=== PATIENT | male | born 1970 | race Caucasian/White ===

== ENCOUNTER 2018-12-24 21:37 | Emergency (ER) | payer MEDICAID, MEDICARE ==
[~2018-12-24] VITALS: Ht 172.7 cm; Wt 87.5 kg
[2018-12-24 21:47] VITALS: BP 173/96
--- NOTE | 2018-12-24 21:54 | NUR ---
PT AMBULATED TO LOBBY
--- NOTE | 2018-12-24 22:15 | NUR ---
PT AMBULATED TO BED 11
--- NOTE | 2018-12-24 22:39 | NUR ---
Dr. Menendez examining patient.
--- NOTE | 2018-12-24 22:40 | NUR ---
EKG PERFORMED AT BEDSIDE WITH FAMILY MEMBER PRESENT
--- NOTE | 2018-12-24 23:03 | NUR ---
48 Y/O MALE PRESENTS TO ED, C/O DIZZNESS X6 DAYS. PT STATES DIZZINESS WORSENED TODAY. PT ABLE TO AMBULATE WITH SLOW STEADY GAIT. PT C/O OF HEADACHE 5/10. PT STATES BEING NAUSEOUS BUT NO VOMITING. PT HAS HX OF HTN, COMPLIANT WITH BP MEDS. PT VSS. ERMD SEEN. WILL CONTINUE TO MONITOR.
[2018-12-24] MEDS ORDERED: MECLIZINE 25 MG TAB PO ONE (23:10)
[2018-12-24 23:46] LABS: BASOPHILS % (AUTO) 0.4 % (0.0-2.0); EOSINOPHILS # (AUTO) 0.4 K/uL (0-0.4); EOSINOPHILS % (AUTO) 4.1 % (0.0-4.0); HEMATOCRIT 43.5 % (36-52); HEMOGLOBIN 14.6 g/dL (12.0-18.0); LYMPHOCYTES # (AUTO) 3.2 K/uL (2.0-11.5); LYMPHOCYTES % (AUTO) 36.4 % (20.5-51.1); MEAN CORPUSCULAR HEMOGLOBIN 29 pg (27-31); MEAN CORPUSCULAR HGB CONC 34 g/dL (33-37); MEAN CORPUSCULAR VOLUME 86.6 fL (80-94); MONOCYTES # (AUTO) 0.5 K/uL (0.8-1.0); MONOCYTES % (AUTO) 5.3 % (1.7-9.3); NEUTROPHILS # (AUTO) 4.7 K/uL (1.8-7.7); NEUTROPHILS % (AUTO) 53.8 % (42.2-75.2); PLATELET COUNT (AUTO) 243 K/uL (140-450); RED BLOOD CELL COUNT(AUTO) 5.03 MIL/uL (4.20-6.10); RED CELL DISTRIBUTION WIDTH 13.4 % (11.6-13.7); WHITE BLOOD COUNT (AUTO) 8.7 K/uL (4.8-10.8)
--- NOTE | 2018-12-24 23:47 | NUR ---
PT TAKEN TO CT
[2018-12-25 00:04] LABS: ALBUMIN 3.7 g/dL (3.4-5.0); ANION GAP 9.8 (8-16); CARBON DIOXIDE 32.7 mmol/L (21-32); POTASSIUM 3.5 mmol/L (3.5-5.1); TOTAL BILIRUBIN 0.4 mg/dL (0.0-1.0)
[2018-12-25 00:33] VITALS: BP 165/88
--- NOTE | 2018-12-25 00:33 | NUR ---
PT DISCHARGED WITH PAPERWORK. RX MECLIZINE. EDUCATED PT REGARDING MEDICATION AND S/E. EDUCATED PT REGARDING D/C DIAGNOSIS AND INSTRUCTIONS. PT VERBALIZED UNDERSTANDING OF TEACHING. TOLD PT TO FOLLOW UP WITH PCP AND WHEN TO RETURN TO ED. PT VSS. PT DENIES ANY DIZZINESS OR HEADACHE. ALL QUESTIONS ANSWERED.
== END 2018-12-25 00:33 | disposition home or self-care (01) ==
LOC: MED 21:37
DX: R42 Dizziness and giddiness (principal); I10 Essential (primary) hypertension; Z88.0 Allergy status to penicillin
CPT/HCPCS: 36415; 70450; 74176; 80053; 85025; 93005; 99284; J8597

== ENCOUNTER 2019-04-30 11:29 | Inpatient (IN) | payer MEDICAID ==
[~2019-04-30] VITALS: Ht 165.1 cm; Wt 93.4 kg
[2019-04-30 11:46] VITALS: BP 137/89
[2019-04-30] MEDS ORDERED: ATEN25TA7 PO (11:56)
[2019-04-30] MEDS ORDERED: SPIR50TA PO (11:56)
[2019-04-30] MEDS ORDERED: CLON0.2T43 PO (11:56)
[2019-04-30] MEDS ORDERED: ASPI-1822 PO (11:56)
[2019-04-30] MEDS ORDERED: POTA10TE30 PO (11:56)
--- NOTE | 2019-04-30 12:05 | NUR ---
EKG DONE ER OK FOR ER LOBBY
[2019-04-30 14:07] LABS: BASOPHILS # (AUTO) 0.1 K/uL (0.00-0.22); EOSINOPHILS # (AUTO) 0.2 K/uL (0-0.4); EOSINOPHILS % (AUTO) 2.2 % (0.0-4.0); HEMATOCRIT 43.6 % (36-52); LYMPHOCYTES # (AUTO) 3.2 K/uL (2.0-11.5); LYMPHOCYTES % (AUTO) 35.4 % (20.5-51.1); MEAN CORPUSCULAR HEMOGLOBIN 28 pg (27-31); MEAN CORPUSCULAR HGB CONC 34 g/dL (33-37); MEAN CORPUSCULAR VOLUME 82.6 fL (80-94); MONOCYTES # (AUTO) 0.4 K/uL (0.8-1.0); NEUTROPHILS # (AUTO) 5.1 K/uL (1.8-7.7); NEUTROPHILS % (AUTO) 56.4 % (42.2-75.2); PLATELET COUNT (AUTO) 234 K/uL (140-450); RED BLOOD CELL COUNT(AUTO) 5.29 MIL/uL (4.20-6.10); RED CELL DISTRIBUTION WIDTH 13.5 % (11.6-13.7)
--- NOTE | 2019-04-30 14:09 | NUR ---
XR AT BEDSIDE.
--- NOTE | 2019-04-30 14:14 | NUR ---
48 Y/M PRESENTS TO ED FOR PALPITATIONS X 10 DAY. PT DENIES PAIN. DISCOMFORT RADIATES FROM LEFT UPPER CHEST TO R UPPER CHEST. DENEIS SOB OR HUMPHRIES. PT HAS NEVER EXPERIENCED THIS PAIN BEFORE. PALPITATIONS ARE ON AND OFF AND LAST ABOUT 30 MINUTES, DENIES PRECIPITATING FACTORS. HX- HTN MD- CLONIDINE, K, SPIRONOLACTONE, ASA.
--- NOTE | 2019-04-30 14:14 | NUR ---
PT PLACED ON 3 LEAD ECG AND PULSE OX.
[2019-04-30 14:23] LABS: ALBUMIN 3.6 g/dL (3.4-5.0); ANION GAP 9.9 (8-16); CARBON DIOXIDE 32.5 mmol/L (21-32); MAGNESIUM 2.1 mg/dL (1.8-2.4); POTASSIUM 3.4 mmol/L (3.5-5.1); TOTAL BILIRUBIN 0.7 mg/dL (0.0-1.0)
[2019-04-30 14:32] LABS: PROTHROMBIN TIME 9.3 secs (10.8-13.4)
--- NOTE | 2019-04-30 14:48 | NUR ---
TROPONIN 0.135
[2019-04-30] MEDS ORDERED: ASPIRIN 81 MG TAB.CHEW PO ONE (15:05)
[2019-04-30] MEDS ORDERED: ATOR10TA PO (15:19)
[2019-04-30] MEDS ORDERED: HYDR-3293 PO (15:19)
[2019-04-30] MEDS ORDERED: ACET-2619 PO (15:19)
[2019-04-30] MEDS: NACL 0.9% 1,000 ML IV SCH (16:19)
[2019-04-30] MEDS ORDERED: LORazepam 2 MG/ML VIAL IM/IVP PRN (16:20)
[2019-04-30] MEDS ORDERED: ACETAMINOPHEN 325 MG TAB PO PRN (16:20)
[2019-04-30] MEDS ORDERED: MORPHINE SULFATE 2 MG/ML SYR IVP PRN (16:20)
[2019-04-30] MEDS ORDERED: ONDANSETRON 4 MG/2 ML VIAL IM/IVP PRN (16:20)
[2019-04-30] MEDS ORDERED: DOCUSATE SODIUM 100 MG GELCAP PO PRN (16:20)
[2019-04-30] MEDS ORDERED: HYDROcodone/APAP 5/325 MG 1 TAB TAB PO PRN (16:20)
--- NOTE | 2019-04-30 16:45 | NUR ---
Patient will be admitted to care of [facility]. Admited to TELE. Will go to room 106b. Belongings list completed. Report to
[2019-04-30] MEDS ORDERED: POTASSIUM CHLORIDE 10 MEQ TABER PO SCH (17:00)
[2019-04-30 17:03] LABS: PROTHROMBIN TIME 9.3 secs (10.8-13.4)
[2019-04-30 17:10] VITALS: BP 141/80
--- NOTE | 2019-04-30 17:10 | NUR ---
PATIENT ARRIVED FROM ER VIA WHEELCHAIR. ABLE TO AMBULATE TO [facility] BED WITH STEADY GAIT. NO DISTRESS NOTED. DENIES ANY PAIN. SKIN INTACT. IV SITE INTACT, PATENT, AND ON SALINE LOCK. ORIENTED PATIENT TO ROOM AND CALL LIGHT. SAFETY MEASURES IN PLACE, CALL LIGHT WITHIN REACH. WILL CONTINUE TO MONITOR.
[2019-04-30 17:27] LABS: MAGNESIUM 2.1 mg/dL (1.8-2.4); PHOSPHORUS 2.6 mg/dL (2.5-4.9); THYROID STIMULATING HORMONE 1.94 uIU/mL (0.34-3.74)
--- NOTE | 2019-04-30 19:05 | NUR ---
RECEIVED PATIENT IN STABLE CONDITION FROM AM SHIFT NURSE FOR CONTINUITY OF CARE. ALERT AND ABLE TO MAKE NEEDS KNOWN. RESPIRATIONS EVEN, UNLABORED. SKIN WARM, DRY TO TOUCH. NO C/O PAIN. NO S/SX ACUTE DISTRESS. IV SITE TO LEFT HAND 20G PATENT/INTACT, INFUSING FLUIDS WELL. CALL LIGHT WITHIN REACH. WILL CONTINUE TO MONITOR.
--- NOTE | 2019-04-30 19:08 | NUR ---
GAVE REPORT TO LIVESTOCK AGENT NURSE FOR CONTINUITY OF CARE. PATIENT IN STABLE CONDITION.
[2019-04-30] MEDS ORDERED: HEPARIN PER PHARMACY MC PRN (19:55)
[2019-04-30 20:00] VITALS: BP 138/81
--- NOTE | 2019-04-30 21:00 | NUR ---
PATIENT AWAKE AND IN STABLE CONDITION. NO C/O PAIN. NO S/SX ACUTE DISTRESS. CALL LIGHT WITHIN REACH. WILL CONTINUE TO MONITOR.
[2019-04-30 22:49] LABS: BARBITURATE, URINE NEG. ng/ml (NEG <=200); BENZODIAZEPINE, URINE NEG. ng/mL (NEG <=200); CANNABINOID, URINE NEG. ng/mL (NEG <=50); COCAINE, URINE NEG. ng/mL (NEG <=300); OPIATE, URINE NEG. ng/mL (NEG <=2000); PHENCYCLIDINE SCREEN,URINE NEG. ng/mL (NEG <=25)
--- NOTE | 2019-04-30 23:00 | NUR ---
PATIENT ASLEEP. NO C/O PAIN. NO S/SX ACUTE DISTRESS. CALL LIGHT WITHIN REACH. WILL CONTINUE TO MONITOR.
[2019-04-30 23:12] LABS: APPEARANCE,URINE CLEAR (CLEAR); BILIRUBIN,URINE NEGATIVE (NEGATIVE); BLOOD, URINE NEGATIVE (NEGATIVE); COLOR,URINE YELLOW (YELLOW); LEUKOCYTE ESTERASE ,URINE NEGATIVE (NEGATIVE); NITRITE, URINE NEGATIVE (NEGATIVE); PH,URINE 6.5 (5.0-9.0); UGLUCOSE NEGATIVE (NEGATIVE)
[2019-04-30] MEDS: hePARIN / DEXT 5% PREMIX 250 ML IV SCH (23:30)
[2019-05-01] VITALS: BP 136/77
--- NOTE | 2019-05-01 00:23 | NUR ---
NEW IV SITE TO LEFT HAND 22G, INFUSING FLUIDS WELL. NO C/O PAIN. NO S/SX ACUTE DISTRESS. CALL LIGHT WITHIN REACH. WILL CONTINUE TO MONITOR.
--- NOTE | 2019-05-01 01:07 | NUR ---
CRITICAL TROPONIN 0.[address] CHAVEZ WITH NO NEW ORDERS; CONTINUE WITH HEPARIN DRIP. PATIENT IS ASLEEP IN BED. NO C/O PAIN. NO S/SX ACUTE DISTRESS. CALL LIGHT WITHIN REACH. WILL CONTINUE TO MONITOR.
--- NOTE | 2019-05-01 03:15 | NUR ---
PATIENT ASLEEP IN BED AND IN STABLE CONDITION. NO C/O PAIN. NO S/SX ACUTE DISTRESS. CALL LIGHT WITHIN REACH. WILL CONTINUE TO MONITOR.
[2019-05-01 04:00] VITALS: BP 154/88
--- NOTE | 2019-05-01 05:26 | NUR ---
PATIENT ASLEEP IN BED AND IN STABLE CONDITION. NO C/O PAIN. NO S/SX ACUTE DISTRESS. CALL LIGHT WITHIN REACH. WILL CONTINUE TO MONITOR.
[2019-05-01 07:23] LABS: BASOPHILS % (AUTO) 0.4 % (0.0-2.0); EOSINOPHILS # (AUTO) 0.3 K/uL (0-0.4); EOSINOPHILS % (AUTO) 3.6 % (0.0-4.0); HEMATOCRIT 46.2 % (36-52); HEMOGLOBIN 15.4 g/dL (12.0-18.0); LYMPHOCYTES # (AUTO) 2.8 K/uL (2.0-11.5); LYMPHOCYTES % (AUTO) 35.8 % (20.5-51.1); MEAN CORPUSCULAR HEMOGLOBIN 29 pg (27-31); MEAN CORPUSCULAR HGB CONC 33 g/dL (33-37); MONOCYTES # (AUTO) 0.4 K/uL (0.8-1.0); MONOCYTES % (AUTO) 5.1 % (1.7-9.3); NEUTROPHILS # (AUTO) 4.3 K/uL (1.8-7.7); NEUTROPHILS % (AUTO) 55.1 % (42.2-75.2); PLATELET COUNT (AUTO) 211 K/uL (140-450); RED BLOOD CELL COUNT(AUTO) 5.31 MIL/uL (4.20-6.10); RED CELL DISTRIBUTION WIDTH 13.5 % (11.6-13.7); WHITE BLOOD COUNT (AUTO) 7.8 K/uL (4.8-10.8)
[2019-05-01 07:24] LABS: ANION GAP 9.9 (8-16); CARBON DIOXIDE 31.7 mmol/L (21-32); CREATININE 0.9 mg/dL (0.6-1.3); POTASSIUM 3.6 mmol/L (3.5-5.1)
--- NOTE | 2019-05-01 07:25 | NUR ---
RECEIVED REPORT FROM CARE SERVICES MANAGER RN FOR CONTINUITY OF CARE. PT IS AAOX4, AUSTRIAN SPEAKING. PT ABLE TO MAKE NEEDS KNOWN. PT ABLE TO AMBULATE WITHOUT ASSISTANCE. LUNG SOUNDS CLEAR. VOIDING ADEQUATE. PT IV IN THE LEFT FA 20G INFUSING HEPARIN AT 8.89ML/HR. IV IN THE LEFT HAND 22G INFUSING NS @60ML/HR. BOTH IVS PATENT AND INTACT. PT DENIES PAIN. DISCUSSED POC WITH PT AND PT VERBALIZED UNDERSTANDING. BOARD UPDATED. WILL ROUND FREQUENTLY ON PT. BED IN LOW POSITION, CALL LIGHT WITHIN REACH.
[2019-05-01 07:33] LABS: CHOL/HDL RATIO 4.8 (1-4.5)
[2019-05-01] MEDS ORDERED: cloNIDine 0.1 MG TAB PO PRN (08:25)
--- NOTE | 2019-05-01 08:39 | NUR ---
PATIENT HAS BEEN SCREENED AND CATEGORIZED MODERATE NUTRITION RISK. PATIENT WILL BE SEEN WITHIN 3-5 DAYS OF ADMISSION. 05/03/19 05/05/[address]
--- NOTE | 2019-05-01 08:42 | NUR ---
DISCHARGE PLANNING: THIS IS A 48 Y/O MALE PATIENT FROM HOME, WHO CAME IN DUE TO BRADYCARDIA. PAST MEDICAL HISTORY INCLUDE HTN. INITIAL DIAGNOSIS OF BRADYCARDIA. CURRENT LABS INCLUDE WBC 7.8, H/H 15.4/46.2, NA/K 143/3.6, BUN/CREA 13/0.9. TROP TRENDING DOWN, 0.143 ON ADMISSION AND TODAY 0.138. MRSA NARES PENDING. ON HEPARIN DRIP. CXR NEGATIVE. CARDIO CONSULT IN PLACE. DC PLAN BACK TO HOME ONCE STABLE.
[2019-05-01] MEDS ORDERED: LOSARTAN 50 MG TAB PO SCH (09:00)
[2019-05-01] MEDS ORDERED: cloNIDine 0.1 MG TAB PO SCH (09:00)
[2019-05-01] MEDS ORDERED: SPIRONOLACTONE 25 MG TAB PO SCH (09:00)
--- NOTE | 2019-05-01 09:12 | NUR ---
ADMINISTERED MORNING MEDS TO PT. PT TOLERATED WELL. ALL NEEDS MET. WILL CONTINUE TO ROUND FREQUENTLY ON PT. BED IN LOW POSITION, CALL LIGHT WITHIN REACH.
[2019-05-01] MEDS: ASPIRIN 81 MG TAB.CHEW PO SCH (09:14)
[2019-05-01] MEDS: hePARIN / DEXT 5% PREMIX 250 ML IV SCH (09:19)
[2019-05-01] MEDS: NACL 0.9% 1,000 ML IV SCH (09:56)
[2019-05-01 11:07] VITALS: BP 173/92
--- NOTE | 2019-05-01 11:58 | NUR ---
PT RESTING IN BED. ALL NEEDS MET. WILL CONTINUE TO ROUND FREQUENTLY ON PT. BED IN LOW POSITION, CALL LIGHT WITHIN REACH.
[2019-05-01 12:00] VITALS: BP 127/75
--- NOTE | 2019-05-01 13:46 | NUR ---
PT RESTING IN BED. ALL NEEDS MET.
--- NOTE | 2019-05-01 15:43 | NUR ---
PT AMBULATING IN [facility]. ALL NEEDS MET.
[2019-05-01 16:00] VITALS: BP 145/76
--- NOTE | 2019-05-01 17:55 | NUR ---
PT SITTING IN BEDSIDE CHAIR HAVING DINNER. ALL NEEDS MET.
--- NOTE | 2019-05-01 19:21 | NUR ---
RECEIVED PATIENT FROM AM SHIFT NURSE IN STABLE CONDITION FOR CONTINUITY OF CARE. MAORI SPEAKING, ABLE TO MAKE NEEDS KNOWN. RESPIRATIONS EVEN, UNLABORED. NO C/O PAIN. NO S/SX ACUTE DISTRESS. IV SITE TO LEFT AC 20G PATENT/INTACT, FLUSHES WELL. IV SITE TO LEFT HAND 22G PATENT/INTACT, INFUSING FLUIDS WELL. CALL LIGHT WITHIN REACH. WILL CONTINUE TO MONITOR.
--- NOTE | 2019-05-01 19:36 | NUR ---
ENDORSED PT TO ENTRY LEVEL AUTOMOTIVE TECHNICIAN FOR CONTINUITY OF CARE. PT IN STABLE CONDITION AT THIS TIME.
[2019-05-01 20:00] VITALS: BP 168/97
[2019-05-01] MEDS ORDERED: ATORVASTATIN 20 MG TAB PO SCH (21:00)
--- NOTE | 2019-05-01 21:10 | NUR ---
MADE ROUNDS. PATIENT IS AWAKE AND IN STABLE CONDITION. NO C/O PAIN. NO S/SX ACUTE DISTRESS. CALL LIGHT WITHIN REACH. WILL CONTINUE TO MONITOR.
--- NOTE | 2019-05-01 23:41 | NUR ---
PATIENT IS AWAKE AND ON HIS PHONE. CONTINUES IN STABLE CONDITION. NO C/O PAIN. NO S/SX ACUTE DISTRESS. CALL LIGHT WITHIN REACH. WILL CONTINUE TO MONITOR.
[2019-05-02] VITALS: BP 140/79
--- NOTE | 2019-05-02 01:09 | NUR ---
PATIENT IS ASLEEP AND IN STABLE CONDITION. NO C/O PAIN. NO S/SX ACUTE DISTRESS. CALL LIGHT WITHIN REACH. WILL CONTINUE TO MONITOR.
[2019-05-02] MEDS: NACL 0.9% 1,000 ML IV SCH ×2 (01:39→02:44)
--- NOTE | 2019-05-02 03:01 | NUR ---
MADE ROUNDS. PATIENT IS AWAKE AND CONTINUES IN STABLE CONDITION. NO C/O PAIN. NO S/SX ACUTE DISTRESS. CALL LIGHT WITHIN REACH. WILL CONTINUE TO MONITOR.
[2019-05-02 04:00] VITALS: BP 151/91
--- NOTE | 2019-05-02 05:26 | NUR ---
PATIENT AWAKE AND IN STABLE CONDITION. NO C/O PAIN. NO S/SX ACUTE DISTRESS. CALL LIGHT WITHIN REACH. WILL CONTINUE TO MONITOR.
--- NOTE | 2019-05-02 07:23 | NUR ---
ENDORSED PATIENT TO AM SHIFT IN STABLE CONDITION FOR CONTINUITY OF CARE.
--- NOTE | 2019-05-02 07:30 | NUR ---
RECEIVED PT FROM NIGHT NURSE. PT IN STABLE CONDITION, AWAKE IN BED, AAOX4, RESPIRATION EVEN AND UNLABORED ON ROOM AIR. NO DISTRESS NOTED, DENIES PAIN AT THIS TIME. SKIN INTACT, AMBULATORY. IV IN PLACE PATENT AND ASYMPTOMATIC IN L AC 20G SALINE LOCKED AND L HAND 22G INFUSING PER ORDER. CONTINENT. SAFETY MEASURES IN PLACE. CALL LIGHT WITHIN REACH, WILL CONTINUE TO MONITOR.
[2019-05-02 07:46] LABS: BASOPHILS % (AUTO) 0.3 % (0.0-2.0); EOSINOPHILS # (AUTO) 0.3 K/uL (0-0.4); HEMATOCRIT 42.3 % (36-52); LYMPHOCYTES # (AUTO) 2.7 K/uL (2.0-11.5); LYMPHOCYTES % (AUTO) 32.8 % (20.5-51.1); MEAN CORPUSCULAR HEMOGLOBIN 30 pg (27-31); MEAN CORPUSCULAR HGB CONC 35 g/dL (33-37); MEAN CORPUSCULAR VOLUME 83.7 fL (80-94); MONOCYTES # (AUTO) 0.6 K/uL (0.8-1.0); MONOCYTES % (AUTO) 6.8 % (1.7-9.3); NEUTROPHILS # (AUTO) 4.6 K/uL (1.8-7.7); NEUTROPHILS % (AUTO) 56.1 % (42.2-75.2); PLATELET COUNT (AUTO) 200 K/uL (140-450); RED BLOOD CELL COUNT(AUTO) 5.05 MIL/uL (4.20-6.10); RED CELL DISTRIBUTION WIDTH 13.7 % (11.6-13.7); WHITE BLOOD COUNT (AUTO) 8.3 K/uL (4.8-10.8)
[2019-05-02 07:52] LABS: ANION GAP 11.8 (8-16); CARBON DIOXIDE 29.2 mmol/L (21-32); CREATININE 0.9 mg/dL (0.6-1.3)
[2019-05-02 07:54] LABS: PHOSPHORUS 2.9 mg/dL (2.5-4.9)
[2019-05-02 08:00] VITALS: BP 155/104
[2019-05-02] MEDS ORDERED: HYDR-3320 PO (08:43)
[2019-05-02] MEDS ORDERED: ATOR20TA PO ×2 (08:43→08:53)
[2019-05-02] MEDS ORDERED: LISI10TA11 PO (08:45)
[2019-05-02] MEDS ORDERED: POTASSIUM CHLORIDE 8 MEQ TABER PO SCH (09:00)
[2019-05-02] MEDS ORDERED: HYDROCHLOROTHIAZIDE 25 MG TAB PO SCH (09:00)
[2019-05-02] MEDS ORDERED: LISINOPRIL 10 MG TAB PO SCH (09:00)
[2019-05-02] MEDS: ASPIRIN 81 MG TAB.CHEW PO SCH (09:16)
[2019-05-02] MEDS ORDERED: POTASSIUM CHLORIDE 40 MEQ, LIDOCAINE MPF 1% 25 MG in NACL 0.9% 250 ML IV SCH (09:30)
--- NOTE | 2019-05-02 09:30 | NUR ---
MEDICATIONS ADMINISTERED PER ORDER, NO DISTRESS NOTED. SAFETY MEASURES IN PLACE, BED IN LOW POSITION. WILL CONTINUE TO MONITOR.
--- NOTE | 2019-05-02 11:30 | NUR ---
PT IN BED AWAKE, NO DISTRESS NOTED. DENIES PAIN AT THIS TIME. SAFETY MEASURES IN PLACE. CALL LIGHT WITHIN REACH, WILL CONTINUE TO MONITOR.
[2019-05-02 12:14] VITALS: BP 155/104
--- NOTE | 2019-05-02 13:20 | NUR ---
PT DISCHARGED HOME AT THIS TIME. DISCHARGE, MEDICATION AND FOLLOWUP TEACHING GIVEN TO PT, PT VERBALIZED UNDERSTANDING. DISCHARGE PAPERWORK SIGNED BY PT. ID BANDS REMOVED, IV SITES REMOVED WITH MINIMAL BLOOD LOSS AND LUMEN INTACT. FLU VACCINE REFUSED, PNA VACCINE N/A. RESPIRATIONS EVEN AND UNLABORED ON ROOM AIR, STABLE VITAL SIGNS. BELONGINGS VERIFIED AND RETURNED TO PT. PT ESCORTED OFF UNIT ON FOOT AND LEFT HOSPITAL IN PRIVATE VEHICLE.
== END 2019-05-02 13:20 | disposition home or self-care (01) | DRG 190 ==
LOC: MED 11:29 → MTU 16:19
PROVIDERS: ADMIT General Practice; ATTEND General Practice
DX: I21.A1 Myocardial infarction type 2 (principal); E78.5 Hyperlipidemia, unspecified; E87.6 Hypokalemia; F17.210 Nicotine dependence, cigarettes, uncomplicated; R00.1 Bradycardia, unspecified; I10 Essential (primary) hypertension; Z88.0 Allergy status to penicillin; Z79.899 Other long term (current) drug therapy; Z79.82 Long term (current) use of aspirin; Z90.49 Acquired absence of other specified parts of digestive tract; Z87.442 Personal history of urinary calculi; Z83.3 Family history of diabetes mellitus; Z82.49 Family history of ischemic heart disease and other diseases of the circulatory system
CPT/HCPCS: 36415; 71045; 80048; 80053; 80305; 81003; 83036; 83690; 83735; 83880; 84100; 84443; 84484; 85025; 85610; 85730; 87081; 93005; 99285; J1644; J2001; J3480; J7030; Q0092